=== PATIENT | male | born 2000 | race Two or more races ===

== ENCOUNTER 2023-07-05 18:45 | Emergency (ER) | payer SELFPAY ==
[~2023-07-05] VITALS: Ht 188 cm; Wt 99.0 kg
[2023-07-05 19:03] VITALS: BP 148/96; PULSE 68; RESP 20; TEMP 98.6; O2SAT 100
[2023-07-05] MEDS ORDERED: AMOX-494 MT (19:19)
[2023-07-05] MEDS ORDERED: IBUP-2029 MT (19:19)
== END 2023-07-05 19:48 | disposition home or self-care (01) ==
LOC: ER 18:45
DX: K08.89 Other specified disorders of teeth and supporting structures (principal)
CPT/HCPCS: 99283

== ENCOUNTER 2023-09-27 16:47 | Emergency (ER) | payer SELFPAY ==
[~2023-09-27] VITALS: Ht 193 cm; Wt 127.0 kg
[~2023-09-27 16:47] MED LIST: AMOX-494 MT; IBUP-2029 MT
[2023-09-27 17:00] VITALS: O2SAT 99
[2023-09-27] MEDS ORDERED: KETOROLAC 30MG/ML VIAL IV STA (17:35)
[2023-09-27] MEDS ORDERED: SODIUM CHLORIDE 0.9% 1,000 ML IV ONE (17:45)
[2023-09-27 18:06] LABS: HEMATOCRIT. 44.6 % (42.0-52.0); HEMOGLOBIN. 14.5 g/dL (14.0-18.0); MEAN CORPUSCULAR HEMOGLOBIN 28.8 pg (28.0-32.0); MEAN CORPUSCULAR HGB CONC 32.5 g/dL (31.0-37.0); MEAN CORPUSCULAR VOLUME 88.6 fL (80.0-94.0); MEAN PLATELET VOLUME 9.2 fl (7.4-10.4); PLATELET 144 x1000/uL (130-400); RED BLOOD CELL COUNT 5.03 mill/uL (4.7-6.1); RED CELL DISTRIBUTION WIDTH 14.1 % (11.6-14.6); WHITE BLOOD COUNT 5.7 x1000/uL (4.5-11.0)
[2023-09-27 18:08] LABS: DIFFERENTIAL COMMENT 1
[2023-09-27 18:21] LABS: ALANINE AMINOTRANSFERASE 39 IU/L (10-49); ALBUMIN 4.1 g/dL (3.2-4.8); ASPARTATE AMINOTRANSFERASE 27 IU/L (<34); BILIRUBIN TOTAL 0.5 mg/dL (0.1-1.0); CALCIUM 9.2 mg/dL (8.7-10.4); CARBON DIOXIDE 22 mEq/L (21-32); CHLORIDE 102 mEq/L (98-107); CREATINE KINASE 337 IU/L (46-171); CREATININE 1.1 mg/dL (0.6-1.3); GLUCOSE 91 mg/dL (70-105); POTASSIUM 3.4 mEq/L (3.5-5.1); PROTEIN TOTAL 7.9 g/dL (6.0-8.3); SODIUM 133 mEq/L (136-145); UREA NITROGEN BLOOD 11 mg/dL (9-23)
[2023-09-27 18:30] LABS: ETHANOL BLOOD < 10 mg/dL (<10)
[2023-09-27 18:57] LABS: PLATELET ESTIMATE NORMAL
[2023-09-27] MEDS ORDERED: IBUP-2029 MT (20:39)
[2023-09-27 21:26] VITALS: BP 115/69; PULSE 81; RESP 16; TEMP 98.9
== END 2023-09-27 21:28 | disposition home or self-care (01) ==
LOC: ER 16:47
DX: B34.9 Viral infection, unspecified (principal); Z20.822 Contact with and (suspected) exposure to COVID-19
CPT/HCPCS: 80053; 80320; 82550; 85025; 87804 ×2; 36415; 71045; 70450; 93005; 96361; 96374; 99285; 87426; J1885; J7030; Z7610 ×2; G0480